=== PATIENT | male | born 1980 | race Caucasian/White ===

== ENCOUNTER 2016-08-02 03:01 | Emergency (ER) | payer SELFPAY ==
[~2016-08-02 03:01] MED LIST: Z.0.NO CURRENT MEDS
[2016-08-02 03:04] VITALS: BP 120/70; PULSE 89; RESP 16; TEMP 98.2; O2SAT 98
[2016-08-02] MEDS ORDERED: PIPERACIL-TAZO 4.5 GM PREMIX 100 ML IV STA (03:23)
[2016-08-02] MEDS ORDERED: VANCOMYCIN INJ 1,000 MG in SODIUM CHLOR 0.9% 250 ML INJ 250 ML IV STA (03:23)
[2016-08-02] MEDS ORDERED: SODIUM CHLOR 0.9% 1000 ML INJ 1,000 ML IV ONE (03:23)
--- NOTE | 2016-08-02 03:26 | PD ---
HPI Chief Complaint: Pain: Acute or Chronic Time Seen by Provider: 03:26 Travel History International Travel<30 days: No Contact w/Intl Traveler<30days: No Traveled to known affect area: No History of Present Illness HPI 35-year-old male presents to emergency department for evaluation left foot pain. Patient states this has been worsening over the last 3-4 days. He states it has gotten to the point where he cannot ambulate without severe pain, rating a 10 out of 10. States he is also not been feeling well. He has noticed redness on the top of his foot streaking up his leg. He does not recall any injury. States he is not diabetic. Does not recall stepping on anything. He has no other symptoms to report at this time. [facility] Past Medical History Medical History: Denies Significant Hx Past Surgical History Oral Surgery: Yes (DENTAL ABCESS 1996) Social History Alcohol Use: No Tobacco Use: Yes (1 PPD X 4 YRS) Allergies-Medications (Allergen,Severity, Reaction): Coded Allergies: No Known Allergies (Verified , 08/02/16) Reported Meds & Prescriptions Reported Meds & Active Scripts Active Ibuprofen 800 Mg Tab 800 Mg PO Q8H PRN Keflex (Cephalexin) 500 Mg Cap 500 Mg PO Q6H 5 Days Bactrim DS (Sulfamethoxazole-Trimethoprim) 800-160 Mg Tab 1 Tab PO BID Review of Systems Except as stated in HPI: all other systems reviewed are Neg Physical Exam Narrative GENERAL: Well-nourished, well-developed patient, ambulatory in no acute distress SKIN: Focused skin assessment warm/dry. 4 cm in diameter area of callus like tender area proximal to the third and fourth toes of the left foot on the plantar surface. There is questionable fluctuance but nothing clearly obvious. Adjacent to this area on the dorsal aspect of the foot is erythema that extends with a streak up to the mid calf. HEAD: Normocephalic. EYES: No scleral icterus. No injection or drainage. NECK: Supple, trachea midline. No JVD or lymphadenopathy. CARDIOVASCULAR: Regular rate and rhythm without murmurs, gallops, or rubs. RESPIRATORY: Breath sounds equal bilaterally. No accessory muscle use. GASTROINTESTINAL: Abdomen soft, non-tender, nondistended. MUSCULOSKELETAL: No cyanosis, or edema. BACK: Nontender without obvious deformity. No CVA tenderness. Data Data Last Documented VS Vital Signs Date Time Temp Pulse Resp B/P Pulse Ox O2 Delivery O2 Flow Rate FiO2 08/02/16 03:04 98.2 89 16 120/70 98 Room Air Orders Iv Access Insert/Monitor (08/02/16 03:23) Complete Blood Count With Diff (08/02/16 03:23) Basic Metabolic Panel (Bmp) (08/02/16 03:23) Blood Culture (08/02/16 03:23) Foot, Complete ([id number]) (08/02/16 ) Westergren Sedimentation Rate (08/02/16 03:23) Lactic Acid Sepsis Protocol (08/02/16 03:23) Vancomycin Inj (Vancomycin Inj) (08/02/16 03:23) Piperacil-Tazo 4.5 Gm Premix (Zosyn 4.5 (08/02/16 03:23) Sodium Chlor 0.9% 1000 Ml Inj (Ns 1000 M (08/02/16 03:23) Wound Culture And Gram Stain (08/02/16 04:50) Labs Laboratory Tests Test 08/02/16 03:45 White Blood Count 13.5 TH/MM3 Red Blood Count 5.08 MIL/MM3 Hemoglobin 14.4 GM/DL Hematocrit 43.7 % Mean Corpuscular Volume 85.9 FL Mean Corpuscular Hemoglobin 28.3 PG Mean Corpuscular Hemoglobin 33.0 % Concent Red Cell Distribution Width 13.3 % Platelet Count 176 TH/MM3 Mean Platelet Volume 9.8 FL Neutrophils (%) (Auto) 81.0 % Lymphocytes (%) (Auto) 9.6 % Monocytes (%) (Auto) 8.3 % Eosinophils (%) (Auto) 0.6 % Basophils (%) (Auto) 0.5 % Neutrophils # (Auto) 10.9 TH/MM3 Lymphocytes # (Auto) 1.3 TH/MM3 Monocytes # (Auto) 1.1 TH/MM3 Eosinophils # (Auto) 0.1 TH/MM3 Basophils # (Auto) 0.1 TH/MM3 CBC Comment DIFF FINAL Differential Comment Erythrocyte Sedimentation Rate 1 mm/hr Sodium Level 139 MEQ/L Potassium Level 3.6 MEQ/L Chloride Level 105 MEQ/L Carbon Dioxide Level 29.5 MEQ/L Anion Gap 5 MEQ/L Blood Urea Nitrogen 8 MG/DL Creatinine 1.06 MG/DL Estimat Glomerular Filtration 79 ML/MIN Rate Random Glucose 83 MG/DL Lactic Acid Level 1.3 mmol/L Calcium Level 8.7 MG/DL MDM Medical Decision Making Medical Screen Exam Complete: Yes Emergency Medical Condition: Yes Medical Record Reviewed: Yes Differential Diagnosis Osteomyelitis versus abscess versus cellulitis Narrative Course 35-year-old male presents to [facility] department for evaluation left foot pain. Patient appears without distress. X-ray imaging is without acute bony abnormality. CBC is with mild leukocytosis of 13.5. Sedimentation rate is 1. BMP is without acute concern. Lactic acid is 1.3. The plantar surface of the foot is prepped with Betadine and a sterile 18-gauge she was inserted into the area with a scant amount of serosanguineous drainage aspirated. This was sent for culture. Patient will be started on oral antibiotics. I have encouraged him to return this evening for me to reevaluate the area and sooner with any acute worsening. A mandatory referral for podiatry has been placed. Procedures Procedure Narrative Verbal consent is obtained prior to procedure The plantar surface of the foot was prepped with Betadine. A sterile 18-gauge needle is inserted into the area suspected fluctuance. A scant amount of serosanguineous drainage is aspirated. Culture sent. Patient tolerated this well. Diagnosis Primary Impression: Left foot infection Additional Impression: Cellulitis of left foot Referrals: Hull Sorter Primary Care Physician Patient Instructions: Cellulitis (ED), General Instructions Additional Instructions: Keep the area clean and dry Elevate to reduce pain and swelling Follow up with hook up driver Start antibiotics today and take them until they are all gone Return this evening after 7pm for re-evaluation or sooner if symptoms worsen Med/Other Pt SpecificInfo: Prescription(s) given Scripts Ibuprofen 800 Mg [id number] Mg PO Q8H PRN (Pain/Inflammation) #30 TAB Ref 0 Prov:Aneta Olmedo 08/02/16 Cephalexin (Keflex)500 Mg Lti125 Mg PO Q6H 5 Days Ref 0 Prov:Aneta Olmedo 08/02/16 Sulfamethoxazole-Trimethoprim (Bactrim DS)800-160 Mg Tab1 Tab PO BID #20 TAB Ref 0 Prov:Aneta Olmedo 08/02/16 Disposition: 01 DISCHARGE HOME Condition: Stable Aneta Olmedo August 02, 2016 03:26
[2016-08-02 03:54] LABS: AUTOMATED NEUTROPHIL # 10.9 TH/MM3 (1.8-7.7); BASOPHIL # 0.1 TH/MM3 (0-0.2); BASOPHIL % 0.5 % (0.0-2.0); EOSINOPHIL # 0.1 TH/MM3 (0-0.4); EOSINOPHIL % 0.6 % (0.0-4.0); HEMATOCRIT 43.7 % (39.0-51.0); HEMO FLAGS DIFF FINAL; LYMPH % 9.6 % (9.0-44.0); LYMPHOCYTE # 1.3 TH/MM3 (1.0-4.8); MEAN CELL VOLUME 85.9 FL (80.0-100.0); MEAN CORPUSCULAR HEMOGLOBIN 28.3 PG (27.0-34.0); MONO % 8.3 % (0.0-8.0); PLATELET COUNT 176 TH/MM3 (150-450); RED BLOOD COUNT 5.08 MIL/MM3 (4.50-5.90); RED CELL DISTRIBUTION WIDTH 13.3 % (11.6-17.2); WHITE BLOOD COUNT 13.5 TH/MM3 (4.0-11.0)
[2016-08-02 04:14] LABS: BICARBONATE 29.5 MEQ/L (21.0-32.0); POTASSIUM 3.6 MEQ/L (3.5-5.1)
--- NOTE | 2016-08-02 04:14 | RADRPT ---
EXAM DATE/TIME: 08/02/2016 03:36 [facility] COMPARISON: No previous studies available for comparison. INDICATIONS : Left foot pain for two days. No known trauma. MEDICAL HISTORY : None. SURGICAL HISTORY : None. ENCOUNTER: Initial ACUITY: 2 days PAIN SCORE: 7/10 LOCATION: Left foot. FINDINGS: Three view examination of the left foot demonstrates no soft tissue swelling, dislocation, or fractur e. The tarsal bones appear intact. The interphalangeal and metatarsophalangeal joints are intact. The calcaneus is intact. Bony mineralization is normal. CONCLUSION: Unremarkable exam. Angel Neff MD on August 02, 2016 at 4:12 Board Certified Radiologist. This report was verified electronically.
[2016-08-02] MEDS ORDERED: BACT800T5 PO (04:53)
[2016-08-02] MEDS ORDERED: IBUP800T23 PO (04:53)
[2016-08-02] MEDS ORDERED: CEPH-460 PO (04:53)
== END 2016-08-02 06:39 | disposition home or self-care (01) ==
LOC: NEPE 03:01
DX: L08.9 Local infection of the skin and subcutaneous tissue, unspecified (principal); L03.116 Cellulitis of left lower limb; B95.61 Methicillin susceptible Staphylococcus aureus infection as the cause of diseases classified elsewhere; F17.200 Nicotine dependence, unspecified, uncomplicated
CPT/HCPCS: 10160; 73630; 80048; 83605; 85025; 85652; 86403; 87040; 87070; 87186; 96365; 96375; 99284; J2543; J3370; J7030; J7050

== ENCOUNTER 2016-08-02 19:25 | Inpatient (IN) | payer SELFPAY ==
[~2016-08-02] VITALS: Ht 175.3 cm; Wt 73.2 kg
[~2016-08-02 19:25] MED LIST changes: +BACT800T5 PO; +CEPH-460 PO; +IBUP800T23 PO
[2016-08-02 19:28] VITALS: BP 122/77; PULSE 83; RESP 16; TEMP 98.5; O2SAT 98
--- NOTE | 2016-08-02 20:23 | PD ---
HPI Chief Complaint: Wound/Suture/Staple Re-Check Time Seen by Provider: 20:22 Travel History International Travel<30 days: No Contact w/Intl Traveler<30days: No Traveled to known affect area: No History of Present Illness HPI 35-year-old male with no significant medical history presents to the emergency department for reevaluation of left foot pain. Patient was seen and evaluated yesterday for the same thing by myself. The patient was given IV vancomycin and Zosyn yesterday here in the emergency department. His white count was slightly elevated at 13.5 otherwise the workup was without acute concern. I did discuss with my attending yesterday and the patient was discharged on oral antibiotics with the understanding that he would return tonight for further evaluation of this. Patient presents today for worsening pain. States he has been taking the Bactrim but did not fill the Keflex. Denies fever or chills. Is concerned because the foot has become more swollen. Denies any new injury. Has no other symptoms to report. Patient does have a 1 pack per day tobacco smoking history. PFSH Past Medical History Medical History: Denies Significant Hx Diminished Hearing: No Immunizations Current: Yes Influenza Vaccination: No Past Surgical History Surgical History: No Previous Surgery Oral Surgery: Yes (DENTAL ABCESS 1996) Social History Alcohol Use: No Tobacco Use: Yes (1 PPD X 4 YRS) Substance Use: No Allergies-Medications (Allergen,Severity, Reaction): Coded Allergies: No Known Allergies (Verified , 08/02/16) Reported Meds & Prescriptions Reported Meds & Active Scripts Active Ibuprofen 800 Mg Tab 800 Mg PO Q8H PRN Keflex (Cephalexin) 500 Mg Cap 500 Mg PO Q6H 5 Days Bactrim DS (Sulfamethoxazole-Trimethoprim) 800-160 Mg Tab 1 Tab PO BID Review of Systems Except as stated in HPI: all other systems reviewed are Neg Physical Exam Narrative GENERAL: Unkempt, well-nourished male patient, in no acute distress SKIN: Focused skin assessment warm/dry. HEAD: Atraumatic. Normocephalic. EYES: Pupils equal and round. No scleral icterus. No injection or drainage. ENT: No nasal bleeding or discharge. Mucous membranes pink and moist. NECK: Trachea midline. No JVD. CARDIOVASCULAR: Regular rate and rhythm. No murmur appreciated. RESPIRATORY: No accessory muscle use. Clear to auscultation. Breath sounds equal bilaterally. GASTROINTESTINAL: Abdomen soft, non-tender, nondistended. Hepatic and splenic margins not palpable. MUSCULOSKELETAL: No obvious deformities. No clubbing. No cyanosis. Moderate edema of the left foot. Extreme tenderness to palpation proximal to these second, third, and fourth toes on the plantar surface of the left foot. Adjacent to this area on the dorsal aspect is erythema with again streaking up to the midcalf. The erythema does seem more pronounced today than it was yesterday. Distal pulses are palpable. Cap refill is within normal limits. Patient reports significant pain with passive flexion of the digits distal to the area of concern on the plantar foot. NEUROLOGICAL: Awake and alert. No obvious cranial nerve deficits. Motor grossly within normal limits. Normal speech. PSYCHIATRIC: Appropriate mood and affect; insight and judgment normal. Data Data Last Documented VS Vital Signs Date Time Temp Pulse Resp B/P Pulse Ox O2 Delivery O2 Flow Rate FiO2 08/02/16 19:28 98.5 83 16 122/77 98 Room Air Orders Iv Access Insert/Monitor (08/02/16 20:41) Complete Blood Count With Diff (08/02/16 20:41) Basic Metabolic Panel (Bmp) (08/02/16 20:41) Westergren Sedimentation Rate (08/02/16 20:41) Mri Foot W&W/O Contrast (08/02/16 ) Gadodiamide Pf Inj (Omniscan Pf Inj) (08/02/16 22:37) Labs Laboratory Tests Test 08/02/16 21:00 White Blood Count 8.6 TH/MM3 Red Blood Count 4.82 MIL/MM3 Hemoglobin 14.2 GM/DL Hematocrit 41.3 % Mean Corpuscular Volume 85.7 FL Mean Corpuscular Hemoglobin 29.4 PG Mean Corpuscular Hemoglobin 34.3 % Concent Red Cell Distribution Width 13.4 % Platelet Count 178 TH/MM3 Mean Platelet Volume 10.3 FL Neutrophils (%) (Auto) 62.8 % Lymphocytes (%) (Auto) 24.8 % Monocytes (%) (Auto) 10.3 % Eosinophils (%) (Auto) 1.5 % Basophils (%) (Auto) 0.6 % Neutrophils # (Auto) 5.4 TH/MM3 Lymphocytes # (Auto) 2.1 TH/MM3 Monocytes # (Auto) 0.9 TH/MM3 Eosinophils # (Auto) 0.1 TH/MM3 Basophils # (Auto) 0.0 TH/MM3 CBC Comment DIFF FINAL Differential Comment Erythrocyte Sedimentation Rate 2 mm/hr Sodium Level 140 MEQ/L Potassium Level 3.7 MEQ/L Chloride Level 103 MEQ/L Carbon Dioxide Level 29.3 MEQ/L Anion Gap 8 MEQ/L Blood Urea Nitrogen 8 MG/DL Creatinine 1.07 MG/DL Estimat Glomerular Filtration 78 ML/MIN Rate Random Glucose 78 MG/DL Calcium Level 8.3 MG/DL MDM Medical Decision Making Medical Screen Exam Complete: Yes Emergency Medical Condition: Yes Medical Record Reviewed: Yes Differential Diagnosis Osteomyelitis versus cellulitis versus tenosynovitis Narrative Course 35-year-old male presents to the emergency department for reevaluation of a left foot cellulitis, infection. The foot is more swollen than yesterday. This could be secondary to prolonged ambulation however worsening swelling, increasing pain, and more pronounced streaking is concerning that the infection may be getting worse. I discussed the patient with Dr. Mancia, county administrator electronic equipment set up operator. She recommends MRI prior to any planned be made and if anything is identified on the MRI of concern besides cellulitis that the patient should be admitted with a consult placed to her. Patient's white count has returned to normal. It is 8.6 with no neutrophilia. Sedimentation rate is 2. BMP is unchanged. MRI is completed and shows soft tissue swelling and edema of the forefoot, especially on the dorsum. On the plantar surface there is some fluid around the flexor tendons of the third digit suggestive of a mild tenosynovitis. There is no signal marrow abnormality of the bone to suggest asked to osteomyelitis. Alignment is normal. A call has been placed to [facility] for admission. Diagnosis Primary Impression: Tenosynovitis of foot Admitting Information Admitting Physician Requests: Admit Condition: Stable Aneta Olmedo KAT August 02, 2016 20:22
[2016-08-02 21:20] LABS: AUTOMATED NEUTROPHIL # 5.4 TH/MM3 (1.8-7.7); BASOPHIL % 0.6 % (0.0-2.0); EOSINOPHIL # 0.1 TH/MM3 (0-0.4); EOSINOPHIL % 1.5 % (0.0-4.0); HEMATOCRIT 41.3 % (39.0-51.0); HEMO FLAGS DIFF FINAL; LYMPH % 24.8 % (9.0-44.0); LYMPHOCYTE # 2.1 TH/MM3 (1.0-4.8); MEAN CELL VOLUME 85.7 FL (80.0-100.0); MEAN CORPUSCULAR HEMOGLOBIN 29.4 PG (27.0-34.0); MEAN CORPUSCULAR HGB CONC 34.3 % (32.0-36.0); MONO % 10.3 % (0.0-8.0); NEUT % 62.8 % (16.0-70.0); PLATELET COUNT 178 TH/MM3 (150-450); RED BLOOD COUNT 4.82 MIL/MM3 (4.50-5.90); RED CELL DISTRIBUTION WIDTH 13.4 % (11.6-17.2); WHITE BLOOD COUNT 8.6 TH/MM3 (4.0-11.0)
[2016-08-02 21:33] LABS: BICARBONATE 29.3 MEQ/L (21.0-32.0); POTASSIUM 3.7 MEQ/L (3.5-5.1)
[2016-08-02] MEDS ORDERED: GADODIAMIDE PF 287 MG/ML 5 ML VIAL (for RAD MRI) IV ONE (22:37)
--- NOTE | 2016-08-02 23:03 | RADRPT ---
EXAM DATE/TIME: 08/02/2016 21:49 [facility] COMPARISON: No previous studies available for comparison. INDICATIONS : Osteomyelitis. CONTRAST: 15 cc Omniscan (gadodiamide) IV MEDICAL HISTORY : None. SURGICAL HISTORY : Dental. ENCOUNTER: Initial ACUITY: 3 day PAIN SCORE: 8/10 LOCATION: Left foot TECHNIQUE: Multiplanar, multisequence MRI examination was performed without contrast and after the intravenous a dministration of gadolinium. FINDINGS: There is soft tissue swelling and edema in the forefoot, especially on the dorsum of the foot. On the plantar aspect there is some fluid around the flexor tendons of the third digit representing a mild tenosynovitis. No significant marrow signal abnormality identified to suggest osteomyelitis. Normal a lignment. CONCLUSION: 1. Soft tissue swelling and edema in the forefoot most characteristic of a cellulitis. No evidence fo r osteomyelitis. Mild tenosynovitis on the plantar aspect of the foot. Josh Coleman MD on August 02, 2016 at 22:54 Board Certified Radiologist. This report was verified electronically.
[2016-08-02] MEDS ORDERED: SODIUM CHLOR 0.9% 1000 ML INJ 1,000 ML IV ONE (23:30)
[2016-08-02] MEDS ORDERED: VANCOMYCIN INJ 1,000 MG in SODIUM CHLOR 0.9% 250 ML INJ 250 ML IV ONE (23:30)
[2016-08-02] MEDS ORDERED: PIPERACIL-TAZO 3.375 GM PREMIX 50 ML IV ONE (23:30)
[2016-08-02 23:43] VITALS: BP 109/71; PULSE 53; RESP 16; O2SAT 99
[2016-08-02] MEDS ORDERED: HYDROmorphone HCL PF 1 MG/ML VIAL IV PUSH PRN (23:45)
[2016-08-02] MEDS ORDERED: SODIUM CHLORIDE 0.9% FLUSH 10 ML FLUSH IV FLUSH PRN (23:45)
[2016-08-02] MEDS ORDERED: NALOXONE HCL 0.4 MG/ML AMP IV PRN (23:45)
[2016-08-02] MEDS ORDERED: Vancomycin Consult Pharmacy 1 EA OTHER SCH (23:45)
[2016-08-03 02:15] VITALS: BP 109/62; PULSE 51; RESP 22; TEMP 98.5; O2SAT 96
[2016-08-03 03:45] VITALS: PULSE 57
[2016-08-03 04:00] VITALS: BP 105/65; PULSE 59; RESP 22; TEMP 98.4; O2SAT 98
[2016-08-03] MEDS: PIPERACIL-TAZO 4.5 GM PREMIX 100 ML IV SCH ×3 (05:07→17:44)
[2016-08-03 07:31] LABS: AUTOMATED NEUTROPHIL # 3.3 TH/MM3 (1.8-7.7); BASOPHIL # 0.1 TH/MM3 (0-0.2); BASOPHIL % 1.1 % (0.0-2.0); EOSINOPHIL # 0.1 TH/MM3 (0-0.4); EOSINOPHIL % 2.2 % (0.0-4.0); HEMATOCRIT 38.9 % (39.0-51.0); HEMO FLAGS DIFF FINAL; LYMPH % 34.3 % (9.0-44.0); LYMPHOCYTE # 2.3 TH/MM3 (1.0-4.8); MEAN CELL VOLUME 86.7 FL (80.0-100.0); MEAN CORPUSCULAR HEMOGLOBIN 28.8 PG (27.0-34.0); MEAN CORPUSCULAR HGB CONC 33.2 % (32.0-36.0); MONO % 12.1 % (0.0-8.0); NEUT % 50.3 % (16.0-70.0); PLATELET COUNT 160 TH/MM3 (150-450); RED BLOOD COUNT 4.49 MIL/MM3 (4.50-5.90); RED CELL DISTRIBUTION WIDTH 13.5 % (11.6-17.2); WHITE BLOOD COUNT 6.7 TH/MM3 (4.0-11.0)
[2016-08-03 07:55] LABS: BICARBONATE 26.9 MEQ/L (21.0-32.0); POTASSIUM 3.7 MEQ/L (3.5-5.1)
[2016-08-03 08:09] VITALS: BP 100/70; PULSE 66; RESP 20; TEMP 97.7; O2SAT 98
[2016-08-03] MEDS: SODIUM CHLORIDE 0.9% FLUSH 10 ML FLUSH IV FLUSH SCH ×2 (09:00→20:33)
[2016-08-03] MEDS: VANCOMYCIN 1,000 MG/NS 250 ML IV SCH ×2 (10:50)
--- NOTE | 2016-08-03 11:02 | HHI.HP ---
[facility] No Primary Care Physician Admission Diagnosis left foot tenosynovitis, failed outpatient treatment Diagnoses: Chief Complaint: left foot pain/redness Travel History International Travel<30 Days: No Contact w/Intl Traveler <30 Da: No Traveled to Known Affected Are: No History of Present Illness 35-year-old male with no significant past medical history presents with a 2-day history of left foot pain, swelling, and redness. Patient reports he first started noticing the redness and pain on Saturday morning 07/02 around 2 AM. He states initially he was able to walk on the foot, however over the next day the pain worsened and he was not able to put any pressure on the foot. Pain described as constant 10/10 throbbing, worse with movement of the toes and ambulation. He denies any fevers or chills, but did have an episode of sweats. Last night 08/02 he presented to the ER, foot x-ray unremarkable, WBC 13.5 K, afebrile. He was discharged from the ER with prescriptions for Bactrim and Keflex. The patient states he filled the Bactrim, took 1 tablet, but did not have money for the Keflex. The left foot pain continued to worsen and he started to notice red streaking up the left leg, therefore he presented back to the ER. He denies any injury to the left foot. He denies any IVDU. ER [employer] contacted podiatry who recommended foot MRI and admission for IV antibiotics. The patient has no other medical complaints at this time. Review of Systems Except as stated in HPI: all other systems reviewed are Neg Past Family Social History Past Medical History Denies Past Surgical History I&D neck abscess Reported Medications Denies taking any medications on a regular basis. Allergies: Coded Allergies: No Known Allergies (Verified , 08/02/16) Active Ordered Medications Current Medications Medications (Trade) Dose Ordered Sig/Willie Route Start Time Stop Time Status Last Admin (NS Flush) 2 ml UNSCH PRN IV FLUSH 08/02/16 23:45 (NS Flush) 2 ml BID IV FLUSH 08/03/16 09:00 Naloxone HCl 0.4 mg 0.4 mg UNSCH PRN IV 08/02/16 23:45 Pharmacy Profile Note 0 ml @ 0 mls/hr UNSCH OTHER 08/02/16 23:45 (Zosyn 4.5 Gm Premix) 100 ml @ 200 mls/hr Q6HR IV 08/03/16 06:00 08/03/16 05:07 Hydromorphone HCl 0.5 mg 0.5 mg Q4H PRN IV PUSH 08/02/16 23:45 (Vancomycin Inj/ NS 250 ml Inj) 250 ml @ 250 mls/hr Q12H IV 08/03/16 12:00 08/03/16 10:50 Miscellaneous Information SPECIFIC LAB TO BE ... 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 SKIN: Warm and dry. Left dorsal foot with erythema, edema, warmth, tenderness to palpation, with lymphangitis extending up the left medial leg. HEENT: Normocephalic. Atraumatic.Pupils equal and round. Mucous membranes pink and moist. NECK: Supple. Trachea midline. CARDIOVASCULAR: Regular rate and rhythm. S1, S2 noted. No murmur appreciated. RESPIRATORY: No accessory muscle use. Clear to auscultation. Breath sounds equal bilaterally. GASTROINTESTINAL: Abdomen soft, non-tender, nondistended. Normoactive bowel sounds x4. MUSCULOSKELETAL: No obvious deformities. Extremities without clubbing, cyanosis , or edema. NEUROLOGICAL: Awake and alert. No obvious cranial nerve deficits. Motor grossly within normal limits. Normal speech. PSYCHIATRIC: Appropriate mood and affect; insight and judgment normal. Laboratory Laboratory Tests Test 08/02/16 08/03/16 21:00 05:57 White Blood Count 8.6 6.7 Red Blood Count 4.82 4.49 Hemoglobin 14.2 12.9 Hematocrit 41.3 38.9 Mean Corpuscular Volume 85.7 86.7 Mean Corpuscular Hemoglobin 29.4 28.8 Mean Corpuscular Hemoglobin 34.3 33.2 Concent Red Cell Distribution Width 13.4 13.5 Platelet Count 178 160 Mean Platelet Volume 10.3 10.9 Neutrophils (%) (Auto) 62.8 50.3 Lymphocytes (%) (Auto) 24.8 34.3 Monocytes (%) (Auto) 10.3 12.1 Eosinophils (%) (Auto) 1.5 2.2 Basophils (%) (Auto) 0.6 1.1 Neutrophils # (Auto) 5.4 3.3 Lymphocytes # (Auto) 2.1 2.3 Monocytes # (Auto) 0.9 0.8 Eosinophils # (Auto) 0.1 0.1 Basophils # (Auto) 0.0 0.1 CBC Comment DIFF FINAL DIFF FINAL Differential Comment Erythrocyte Sedimentation Rate 2 Sodium Level 140 140 Potassium Level 3.7 3.7 Chloride Level 103 105 Carbon Dioxide Level 29.3 26.9 Anion Gap 8 8 Blood Urea Nitrogen 8 7 Creatinine 1.07 1.04 Estimat Glomerular Filtration 78 81 Rate Random Glucose 78 80 Calcium Level 8.3 8.4 Result Diagram: 08/03/16 0557 08/03/16 0557 Imaging Last Impressions Foot MRI 08/02/16 0000 Signed Impressions: Service Date/Time: July 21:49 - CONCLUSION: 1. Soft tissue swelling and edema in the forefoot most characteristic of a cellulitis. No evidence for osteomyelitis. Mild tenosynovitis on the plantar aspect of the foot. Josh Coleman MD Assessment and Plan Problem List: (1) Cellulitis of left foot ICD Code: L03.116 Status: Acute (2) Tenosynovitis of foot ICD Code: M65.9 Status: Acute Assessment and Plan 35-year-old male with no significant past medical history presents with a 2-day history of left foot pain, swelling, and redness. Left Foot Cellulitis and Tenosynovitis, with suspected Sepsis: WBC 13.5K and tachycardic on initial ER visit 08/02. Left foot xray unremarkable. Left lower extremity MRI shows soft tissue swelling/edema in the forefoot characteristic of cellulitis; no osteomyelitis; mild tenosynovitis on the plantar aspect of the foot. -Consulted podiatry, discussed with Dr. Mancia, no surgical intervention warranted -Continue IV antibiotics with IV Vanco/Zosyn -Monitor blood cultures -Start on IV Toradol for pain/inflammation Suspected Drug Use: patient denies however foot cellulitis above suspicious for drug use. -check Urine Drug Screen -avoid narcotics Tobacco Use: counseled on cessation. -Nicotine patch prn DVT Prophylaxis: teds/SCDs Code Status Full Code Discussed Condition With RN, Dr. Rush Physician Certification 2 Midnight Certification Type: Admission for Inpatient Services Order for Inpatient Services The services are ordered in accordance with Medicare regulations or non- Medicare payer requirements, as applicable. In the case of services not specified as inpatient-only, they are appropriately provided as inpatient services in accordance with the 2-midnight benchmark. Estimated LOS (days): 2 days is the estimated time the patient will need to remain in the hospital, assuming treatment plan goals are met and no additional complications. Post-Hospital Plan: Home Notes: The exam, history, and the medical decision-making described in the above note were completed with the assistance of the mid-level provider. I reviewed and agree with the findings presented. I attest that I had a [id number] encounter with the patient on the same day, and personally performed and documented my assessment and findings in the medical record.patient seen and examined on date of service. Patient seen on medical floor. Patient reports that pain much improved already today. Erythema appears to have receded somewhat. Appreciate orthopedic assistance. Continue antibiotics and monitor. Mona Teresa PA-C August 03, 2016 11:02 Sivakumar Rush MD August 04, 2016 12:25
[2016-08-03 11:56] VITALS: BP 99/66; PULSE 59; RESP 20; TEMP 97.6; O2SAT 98
[2016-08-03 11:56] LABS: AMPHETAMINE, URINE NEG (NEG); BARBITURATES, URINE NEG (NEG); COCAINE, URINE POS (NEG)
[2016-08-03] MEDS: KETOROLAC TROMETHAMINE 30 MG/ML (IVP) VIAL IV PUSH SCH ×2 (12:11→17:44)
[2016-08-03] MEDS ORDERED: NICOTINE 21 MG/24 HR PATCH T-DERMAL PRN (13:00)
--- NOTE | 2016-08-03 19:14 | MB ---
cc: MARICARMEN HAJI DPM DATE OF CONSULTATION 08/03/16 CHIEF COMPLAINT Left foot swelling and skin infection. HISTORY OF PRESENT ILLNESS Mr. Bedolla is a 35-year-old male patient with a three-day history of left foot pain, swelling and redness. He was seen in the ER Saturday for the same issue. He was prescribed two oral antibiotics. He took one dose of one and did not take any of the other and then represented to the hospital the next day for increased pain and swelling. The MRI was unremarkable, but the patient's foot edema and erythema were extensive enough for the emergency room PA to admit the patient for further evaluation and IV antibiotics. He states that the pain and swelling is down approximately 50% since starting IV antibiotics less than a day ago. He denies any nausea, vomiting, fever, headaches or chills. PAST MEDICAL HISTORY The patient denies. PAST SURGICAL HISTORY Incision and drainage of the neck. MEDICATIONS The patient denies. ALLERGIES The patient denies. CURRENT MEDICATIONS Please see list. FAMILY HISTORY Noncontributory. SOCIAL HISTORY The patient is a pack a day smoker and has says he occasionally uses marijuana and alcohol. VITAL SIGNS: Temperature is 97.6 with a T-max of 98.5, pulse is 59, respiratory rate 20, blood pressure 99/66, pulse ox 98% O2 on room air. LABORATORY DATA White count is 6.7, hemoglobin 12.9, hematocrit 38.9, platelets of 160. GFR is 2. Sodium 140, potassium 3.7, chloride 105, carbon dioxide 26.9, BUN 7, creatinine 1.04. Toxicology report is positive for cocaine. No microbiology. IMAGING STUDIES MRI was negative for any soft tissue abscesses or osteomyelitis. PHYSICAL EXAMINATION He has palpable DP and PT pulses. Cap fill time less than 3 seconds. Gross sensation is intact. Biomechanically unremarkable. He does have maceration interdigitally of the third and fourth interspaces. A history of tinea pedis, slight erythema extending from the dorsal lateral foot to the anterior tibia, mild lateral dorsal foot edema. ASSESSMENT/PLAN 1. Left lower extremity cellulitis most likely secondary to tinea pedis infection, cellulitis improving - Predict another 24 hours of IV antibiotics will be enough for the patient to be discharged on oral antibiotics. - Suggest discharge again on Bactrim and Keflex for two weeks. These are not truly failed outpatient antibiotics as the patient did not take them and they are available for free at [facility]. - The patient was educated on care for the tinea pedis including keeping the skin clean and dry, using antifungal soaps in the shower, spraying shoes with Tinactin and provided with an antifungal topical to use. - The patient is okay to discharge from a podiatric standpoint if cleared by the hospitalist team tomorrow. We will continue IV antibiotics until that time. Thank you for this consultation. Maricarmen ROLLINS/SA /6:04 PM /6:57 PM MTDD
[2016-08-03 20:00] VITALS: BP 107/64; PULSE 56; RESP 17; TEMP 96.8; O2SAT 97
[2016-08-03] MEDS: CLOTRIMAZOLE 1% CREAM 15 GM TOPICAL SCH (21:14)
[2016-08-04] VITALS: BP 110/74; PULSE 63; RESP 17; TEMP 97.2; O2SAT 99
[2016-08-04] MEDS: VANCOMYCIN 1,000 MG/NS 250 ML IV SCH ×2 (00:41)
[2016-08-04] MEDS: PIPERACIL-TAZO 4.5 GM PREMIX 100 ML IV SCH ×2 (00:42→05:19)
[2016-08-04] MEDS: KETOROLAC TROMETHAMINE 30 MG/ML (IVP) VIAL IV PUSH SCH ×2 (00:42→05:19)
[2016-08-04 04:00] VITALS: BP 113/69; PULSE 64; RESP 17; TEMP 96.9; O2SAT 98
[2016-08-04 08:00] VITALS: BP 117/70; PULSE 57; RESP 16; TEMP 96.5; O2SAT 98
[2016-08-04] MEDS: SODIUM CHLORIDE 0.9% FLUSH 10 ML FLUSH IV FLUSH SCH (08:46)
[2016-08-04] MEDS: CLOTRIMAZOLE 1% CREAM 15 GM TOPICAL SCH (08:46)
[2016-08-04] MEDS ORDERED: REMOVE OLD PATCH T-DERMAL PRN (09:00)
--- NOTE | 2016-08-04 09:56 | HHI.PR ---
Subjective Remarks Patient seen for follow up left foot pain. 08/04/16-patient seen this AM. No acute events overnight. Vitals WNL. Rony states foot feels "100 percent better". Wants DC home. Understands he needs to f /u podiatry and take PO antibiotics at home. No F/C, CP, or SOB. Ambulating well with crutches. Objective Vitals Vital Signs Date Time Temp Pulse Resp B/P Pulse Ox O2 Delivery O2 Flow Rate FiO2 08/04/16 05:59 20 08/04/16 04:00 96.9 64 17 113/69 98 08/04/16 00:00 97.2 63 17 110/74 99 08/03/16 20:00 96.8 56 17 107/64 97 08/03/16 11:56 97.6 59 20 99/66 98 I/O 08/03/16 08/03/16 08/03/16 08/04/16 08/04/16 08/04/16 07:00 15:00 23:00 07:00 15:00 23:00 Intake Total 360 ml 930 ml Balance 360 ml 930 ml Intake Oral 360 ml 480 ml IV Total 450 ml # Voids 1 4 # Bowel Movements 0 0 Result Diagram: 08/03/16 0557 08/03/16 0557 Objective Remarks GENERAL: Well-nourished, well-developed middle aged male patient in [facility]. SKIN: Warm and dry. Left dorsal foot with trace erythema and edema to ankle. No longer TTP. No area of fluctuance seen. No drainage. CARDIOVASCULAR: Regular rate and rhythm. S1, S2 noted. No murmur appreciated. RESPIRATORY: No accessory muscle use. Clear to auscultation. Breath sounds equal bilaterally. GASTROINTESTINAL: Abdomen soft, non-tender, nondistended. Normoactive bowel sounds x4. MUSCULOSKELETAL: No obvious deformities. Extremities without clubbing, cyanosis , or edema. NEUROLOGICAL: Awake and alert. No obvious cranial nerve deficits. Motor grossly within normal limits. Normal speech. PSYCHIATRIC: Appropriate mood and affect; insight and judgment normal. A/P Problem List: (1) Cellulitis of left foot ICD Code: L03.116 Status: Acute (2) Tenosynovitis of foot ICD Code: M65.9 Status: Acute Assessment and Plan 35-year-old male with no significant past medical history presents with a 2-day history of left foot pain, swelling, and redness. Left Foot Cellulitis and Tenosynovitis, with suspected Sepsis: WBC 13.5K and tachycardic on initial ER visit 08/02. Left foot xray unremarkable. Left lower extremity MRI shows soft tissue swelling/edema in the forefoot characteristic of cellulitis; no osteomyelitis; mild tenosynovitis on the plantar aspect of the foot. -Consulted podiatry, discussed with Dr. Mancia, no surgical intervention warranted. Okay to DC home on PO regimen after 24 hours tx with IV abx. Plan for 2 week course bactrim + keflex at [place]. -IV Toradol for pain/inflammation Suspected Drug Use: patient denies however foot cellulitis above suspicious for drug use. -UDS positive for cocaine. Counseled regarding risk of continued use. -avoid narcotics Tobacco Use: counseled on cessation. -Nicotine patch prn DVT Prophylaxis: teds/SCDs Sourav Meng MD R3 August 04, 2016 09:56
[2016-08-04] MEDS ORDERED: CEPH-460 PO (10:04)
[2016-08-04] MEDS ORDERED: BACT800T5 PO (10:04)
--- NOTE | 2016-08-04 10:04 | HHI.DCPOC ---
Discharge Care Plan Diagnosis: (1) Cellulitis of left foot Goals to Promote Your Health * To prevent worsening of your condition and complications * To maintain your health at the optimal level Directions to Meet Your Goals Take your medications as prescribed Follow your dietary instruction Follow activity as directed Keep your appointments as scheduled Take your immunizations and boosters as scheduled If your symptoms worsen call your PCP, if no PCP go to Urgent Care Center or Emergency Room Smoking is Dangerous to Your Health. Avoid second hand smoke Call the 24-hour hour crisis hotline for domestic abuse at Sourav Meng MD R3 August 04, 2016 10:04
[2016-08-04] MEDS ORDERED: PHARMACY ORDERED LAB ONE (11:45)
== END 2016-08-04 11:33 | disposition home or self-care (01) | DRG 603 ==
LOC: NEPD 19:25 → NEDA 23:36 → NEPFCDU 08-03 02:05 → N06B 08-03 17:14
PROVIDERS: ADMIT Family Medicine; ATTEND Family Medicine
DX: L03.116 Cellulitis of left lower limb (principal); B35.3 Tinea pedis; M65.9 Synovitis and tenosynovitis, unspecified; F17.210 Nicotine dependence, cigarettes, uncomplicated; F12.90 Cannabis use, unspecified, uncomplicated
CPT/HCPCS: 73720; 80048; 80307; 85025; 85652; A9579; J1885; J2543; J3370; J7030; J7050